=== PATIENT | female | born 1935 | race Caucasian/White ===

== ENCOUNTER → 2016-09-03 | Outpatient (CLI) | payer BC ==
[~2016-09-03] MED LIST: ACET325T96 PO; HYDR-4313 PO; HYDR-4330 PO; MULT-506 PO; PROM25TA PO; VTMD PO; VTMD1000 PO; XPNIN INH
--- NOTE | 2016-09-03 17:06 | DIAGNOSTIC IMAGING REPORT ---
CHEST 2 VIEWS ROUTINE CLINICAL HISTORY: COUGH dyspnea COMPARISON STUDY: 04/03/2014 FINDINGS: Moderate emphysematous change. Small chronic parenchymal scar left upper lung unchanged. No focal infiltrate. IMPRESSION: Moderate emphysematous change. No acute process. Electronically signed by: Jerrell Turk M.D. 09/03/2016 5:05 PM Dictated Date/Time: 09/03/2016 5:04 PM
== END | disposition home or self-care (01) ==
LOC: C.RAD 16:25
PROVIDERS: ATTEND Family Medicine
DX: R05 Cough (principal); J43.9 Emphysema, unspecified

== ENCOUNTER 2021-06-08 17:20 | Inpatient (IN) ==
[2021-06-08] MEDS ORDERED: ACETAMINOPHEN 325 MG TAB PO STA (17:55)
[2021-06-08] MEDS ORDERED: SODIUM CHLORIDE 0.9% 500 ML IV SCH (18:00)
[2021-06-08] MEDS ORDERED: SODIUM CHLORIDE 0.9% 1000ML 1,000 ML IV SCH (18:00)
--- NOTE | 2021-06-08 18:22 | XRay Report ---
XR chest 1V portable CLINICAL HISTORY: hypoxia. COMPARISON STUDY: No previous studies for comparison. TECHNIQUE: 04/03/2014 FINDINGS: Single frontal view of the chest demonstrates the cardiomediastinal silhouette to be within normal li mits. There is hyperinflation of the lungs with attenuation of the pulmonary vasculature peripherally characteristic of underlying chronic obstructive pulmonary disease. The lungs are clear of alveolar opacities. Mild interstitial fibrotic changes are present at the lung bases. There is no evidence for pleural effusion. There is no evidence for vascular congestion. There is no acute osseous pathology. IMPRESSION: No acute cardiopulmonary disease. Evidence for underlying COPD. ACT 112: Negative or not required by law. Electronically signed by: Walter Hogan M.D. 06/08/2021 6:21 PM
[2021-06-08 18:26] LABS: Basophils # (auto) 0.01 K/uL (0-0.2); Basophils % (auto) 0.1 %; Hematocrit (blood only) 47.7 % (37-47); Hemoglobin 15.7 g/dL (12.0-16.0); Immature Granulocytes # (auto) 0.01 K/uL (0.00-0.02); Immature Granulocytes % (auto) 0.1 %; Lymphocytes # (auto) 0.33 K/uL (1.2-3.4); Lymphocytes % (auto) 3.5 %; Mean Corpuscular Hemoglobin 30.2 pg (25-34); Mean Corpuscular Hgb Conc 32.9 g/dL (32-36); Mean Corpuscular Volume 91.7 fL (80-100); Mean Platelet Volume 10.2 fL (7.4-10.4); Monocytes # (auto) 1.06 K/uL (0.11-0.59); Monocytes % (auto) 11.1 %; Neutrophils # (auto) 8.15 K/uL (1.4-6.5); Neutrophils % (auto) 85.2 %; Platelet Count 200 K/uL (130-400); RDW Coefficient of Variation 15.4 % (11.5-14.5); RDW Standard Deviation 51.8 fL (36.4-46.3); White Blood Count 9.56 K/uL (4.8-10.8)
[2021-06-08 18:51] LABS: BUN Creatinine Ratio 31.2 (10-20); Calcium 9.4 mg/dl (8.5-10.1); Creatinine Clr Calc Pharmacy 22.2 ml/min; Est GFR (African American) 45.5 ml/min; Est GFR (Non-African American) 39.3 ml/min
[2021-06-08 18:58] LABS: Albumin Globulin Ratio 0.6 (0.9-2); Bilirubin,Total 0.7 mg/dl (0.2-1); Globulin 5.3 gm/dl (2.5-4.0); Thyroid Stimulating Hormone 1.46 uIu/ml (0.300-4.500); Total Protein 8.3 gm/dl (6.4-8.2); Troponin I 0.481 ng/ml (0-0.045)
--- NOTE | 2021-06-08 19:17 | Emergency Department Note ---
Impression & Plan Hypoxia, Elevated troponin, Syncope and collapse, Fever ED Provider Note INFORMANT: Patient ED PROVIDER(S): Prince Araujo MD CHIEF COMPLAINT: Syncope PLAN: Disposition: Admitted Condition: Guarded Outpatient prescription management: none Referral: None MEDICAL DECISION MAKING: Patient presented with complaints of syncope. Vital signs were concerning for infection, possibly Covid related. Covid testing was performed and was negative. Chest imaging did not reveal any significant acute disease. The patient was found to have a mild elevation of her troponin. CBC and chemistry panel were unremarkable. ECG did show some inferior T wave inversion. Lactate was performed as well as cultures. Patient was given empiric antibiotics due to the hypotension and fever. Because of the syncope and fall she was sent for CT imaging of the head and chest. The patient responded well to fluids. CT imaging of the head did not reveal any acute process. CT imaging of the chest was concerning for bilateral pulmonary emboli. I did a consult with Dr. Hogan of radiology and he agreed. I did meet with the patient and family. They were updated. Heparin drip was ordered. The patient will need further management in the hospital. Consultation was made with Dr. Jono Herbert of the [facility] service. Patient was evaluated in the ER for further management. Triage Nursing notes reviewed and agree them. Vital Signs: reviewed and remarkable for hypoxia, hypotension, and fever Differential diagnosis: COVID-19, vasovagal event, dehydration, infection, hypoglycemia, electrolyte abnormalities, cardiac sources, intracerebral event, pulmonary embolism, seizure, toxicologic, neurologic, as well as other pathologies. Diagnostics interpreted by me: ECG: Twelve-lead ECG reveals sinus tachycardia 112 bpm. Inferior T wave inversions. Bundle-branch block present. No ST elevation. Cardiac Monitoring:Cardiac monitoring ordered by me: The patient was placed on continuous cardiac monitoring and observed. It revealed a normal sinus rhythm at 100 beats per minute without ectopy or evidence of dysrhythmia. Imaging studies: Chest x-ray reveals chronic changes. No acute process noted. CT imaging of the head and chest as above. Consistent with bilateral pulmonary emboli. HPI: The patient is a 85 year old female who presents to the Emergency Room with complaints of syncope. This started this morning around 930 and occurred at home. Patient states she was weak and was unable to get herself up. She laid on the floor until about 2 PM. The patient also notes the following associated symptoms, shortness of breath for the last few days. Patient is not immunized f or COVID-19 No known sick contacts for COVID-19. The patient has taken no medication forrelieving factors. Current pain is rated as 0/10. Pt denies headache, fevers, chills, diaphoresis, visual changes, neck pain, chest pain, nausea, vomiting, abdominal pain, back pain, melena, hematochezia, urinary symptoms, numbness, focal weakness, lymphadenopathy, rash, or other complaints. ROS: See above HPI for pertinent positives & negatives. A total of 10 systems reviewed and were otherwise negative. PAST MEDICAL HISTORY:See Below , COPD PAST SURGICAL HISTORY:See Below, FAMILY HISTORY:See Below SOCIAL HISTORY:See Below, non-smoker HOME MEDICATIONS:See Below ALLERGIES:See Below VITALS:See Below PHYSICAL EXAMINATION: GENERAL: Awake, alert, mildly dyspneic-appearing, in no distress HENT: Normocephalic, atraumatic. Oropharynx unremarkable. EYES: Normal conjunctiva. Sclera non-icteric. NECK: Inspection normal. Non-tender. Supple. No nuchal rigidity. FROM. No masses. RESPIRATORY: Clear to auscultation. No wheezes. No rales. Mildly increased respiratory effort. CARDIAC: Normal rate. Normal rhythm. No murmurs. No rubs. Extremities warm and well perfused. Pulses equal. No JVD. GI: Soft, non-distended. No tenderness to palpation. No rebound or guarding. No masses. RECTAL: Deferred. MUSCULOSKELETAL: Atraumatic. Chest examination reveals no tenderness. The back is symmetrical on inspection without obvious abnormality. There is no CVA te nderness to palpation. No joint edema. LOWER EXTREMITIES: Calves are equal size bilaterally and non-tender. No edema. No discoloration. NEURO: Normal sensorium. No sensory or motor deficits noted. SKIN: No rash or jaundice noted. CRITICAL CARE: I have personally spent greater than 40 minutes of critical care time in the direct management of this patient. This includes bedside care, interpretation of diagnostic studies, and testing, discussion with consultants, patient, and family members, and other required patient management activities. These minutes are in excess of all separately billable procedures. Prince Araujo MD Past Med/Surg History Social History Smoking Status: Former smoker Feels Safe at Home: Yes Allergies Allergies Allergy/AdvReac Type Severity Reaction Status Date / Time No Known Allergies Allergy Verified 06/08/21 20:59 Home Meds Home Medications Medication Instructions Recorded Confirmed albuterol sulfate 90 mcg/actuation 2 puff INHALATION Q6H PRN 06/08/21 06/08/21 aerosol inhaler alendronate 70 mg tablet 70 mg PO WK 06/08/21 06/08/21 fluticasone furoate 100 1 inh INHALATION DAILY 06/08/21 06/08/21 mcg-vilanterol 25 mcg/dose inhalation powder (Breo Ellipta) multivitamin 1 tab PO DAILY 06/08/21 06/08/21 Results & Data (ED) Vital Signs Vital Signs - 24 hr 06/08/21 17:25 06/08/21 17:31 06/08/21 17:32 Temperature 37.9 C H Temperature Source Temporal Artery Scan Pulse Rate 117 H 104 H Pulse Rhythm Regular Respiratory Rate 20 20 Respiratory Effort / Characteristics Non-Labored Respiratory Depth Normal Blood Pressure 111/70 Blood Pressure [Right Arm] Blood Pressure Mean 83 Blood Pressure Mean [Right Arm] Blood Pressure Position [Right Arm] Pulse Oximetry 83 L 94 Oxygen Delivery Method Room Air Nasal Cannula Nasal Cannula Oxygen Flow Rate 4 Sepsis Recent Fever Within 48 Hours No Sepsis New/Unexplained Change in Mental Status No Sepsis Action Taken by Nursing No Action Required Oxygen Flow Rate - Titration 4 Pulse Oximetry Post Tiitration 90 06/08/21 17:49 06/08/21 17:50 06/08/21 18:00 Temperature Temperature Source Pulse Rate 112 H 110 H 109 H Pulse Rhythm Respiratory Rate 22 24 41 H Respiratory Effort / Characteristics Respiratory Depth Blood Pressure Blood Pressure [Right Arm] Blood Pressure Mean Blood Pressure Mean [Right Arm] Blood Pressure Position [Right Arm] Pulse Oximetry 96 96 Oxygen Delivery Method Oxygen Flow Rate Sepsis Recent Fever Within 48 Hours Sepsis New/Unexplained Change in Mental Status Sepsis Action Taken by Nursing Oxygen Flow Rate - Titration Pulse Oximetry Post Tiitration 06/08/21 18:10 06/08/21 18:20 06/08/21 18:26 Temperature Temperature Source Pulse Rate 106 H 107 H Pulse Rhythm Respiratory Rate 20 22 20 Respiratory Effort / Characteristics Respiratory Depth Normal Blood Pressure Blood Pressure [Right Arm] 101/60 Blood Pressure Mean Blood Pressure Mean [Right Arm] 73 Blood Pressure Position [Right Arm] Lying Pulse Oximetry 96 95 95 Oxygen Delivery Method Nasal Cannula Nasal Cannula Nasal Cannula Oxygen Flow Rate 4 4 4 Sepsis Recent Fever Within 48 Hours Sepsis New/Unexplained Change in Mental Status Sepsis Action Taken by Nursing Oxygen Flow Rate - Titration Pulse Oximetry Post Tiitration 06/08/21 18:30 06/08/21 18:40 Temperature Temperature Source Pulse Rate 100 H 101 H Pulse Rhythm Respiratory Rate 22 15 Respiratory Effort / Characteristics Respiratory Depth Blood Pressure 98/61 L Blood Pressure [Right Arm] Blood Pressure Mean 73 Blood Pressure Mean [Right Arm] Blood Pressure Position [Right Arm] Pulse Oximetry 96 96 Oxygen Delivery Method Nasal Cannula Nasal Cannula Oxygen Flow Rate 4 4 Sepsis Recent Fever Within 48 Hours Sepsis New/Unexplained Change in Mental Status Sepsis Action Taken by Nursing Oxygen Flow Rate - Titration Pulse Oximetry Post Tiitration Laboratory Data Result diagrams: 06/08/21 18:14 06/08/21 19:14 Lab Results 06/08/21 06/08/21 06/08/21 Range/Units 18:14 18:14 18:14 WBC 9.56 (4.8-10.8) K/uL RBC 5.20 (4.2-5.4) M/uL Hgb 15.7 (12.0-16.0) g/dL Hct 47.7 H (37-47) % MCV 91.7 (80-100) fL MCH 30.2 (25-34) pg MCHC 32.9 (32-36) g/dL RDW Std Deviation 51.8 H (36.4-46.3) fL RDW Coeff of Maxim 15.4 H (11.5-14.5) % Plt Count 200 (130-400) K/uL MPV 10.2 (7.4-10.4) fL Immature Gran % (Auto) 0.1 % Neut % (Auto) 85.2 % Lymph % (Auto) 3.5 % [place] % (Auto) 11.1 % Eos % (Auto) 0.0 % Baso % (Auto) 0.1 % Neut # (Auto) 8.15 H (1.4-6.5) K/uL Lymph # (Auto) 0.33 L (1.2-3.4) K/uL [place] # (Auto) 1.06 H (0.11-0.59) K/uL Eos # (Auto) 0.00 (0-0.5) K/uL Baso # (Auto) 0.01 (0-0.2) K/uL Immature Gran # (Auto) 0.01 (0.00-0.02) K/uL PT (9.0-12.0) Seconds INR (0.9-1.1) APTT (21.0-31.0) Seconds PTT Ratio Sodium 138 (136-145) mmol/L Potassium (3.5-5.1) mmol/L Chloride 103 (98-107) mmol/L Carbon Dioxide 25 (21-32) mmol/L Anion Gap 9.0 (3-11) BUN 39 H (7-18) mg/dl Creatinine 1.24 H (0.6-1.2) mg/dl Est Cr Clr Drug Dosing 22.2 ml/min Est GFR ( Amer) 45.5 ml/min Est GFR (Non-Af Amer) 39.3 ml/min BUN/Creatinine Ratio 31.2 H (10-20) Glucose 173 H (70-99) mg/dl Lactate (0.4-2.0) mmol/L Calcium 9.4 (8.5-10.1) mg/dl Magnesium (1.8-2.4) mg/dl Total Bilirubin 0.7 (0.2-1) mg/dl AST (15-37) U/L ALT 66 (12-78) U/L Alkaline Phosphatase 218 H (45-117) U/L Troponin I 0.481 H* (0-0.045) ng/ml Total Protein 8.3 H (6.4-8.2) gm/dl Albumin 3.0 L (3.4-5.0) gm/dl Globulin 5.3 H (2.5-4.0) gm/dl Albumin/Globulin Ratio 0.6 L (0.9-2) TSH 1.460 (0.300-4.500) uIu/ml Specimen Hemolysis Cancelled SARS-CoV-2 (PCR) NEGATIVE (Negative) 06/08/21 06/08/21 06/08/21 Range/Units 18:42 19:14 21:01 WBC (4.8-10.8) K/uL RBC (4.2-5.4) M/uL Hgb (12.0-16.0) g/dL Hct (37-47) % MCV (80-100) fL MCH (25-34) pg MCHC (32-36) g/dL RDW Std Deviation (36.4-46.3) fL RDW Coeff of Maxim (11.5-14.5) % Plt Count (130-400) K/uL MPV (7.4-10.4) fL Immature Gran % (Auto) % Neut % (Auto) % Lymph % (Auto) % [place] % (Auto) % Eos % (Auto) % Baso % (Auto) % Neut # (Auto) (1.4-6.5) K/uL Lymph # (Auto) (1.2-3.4) K/uL [place] # (Auto) (0.11-0.59) K/uL Eos # (Auto) (0-0.5) K/uL Baso # (Auto) (0-0.2) K/uL Immature Gran # (Auto) (0.00-0.02) K/uL PT (9.0-12.0) Seconds INR (0.9-1.1) APTT (21.0-31.0) Seconds PTT Ratio Sodium (136-145) mmol/L Potassium 4.4 (3.5-5.1) mmol/L Chloride (98-107) mmol/L Carbon Dioxide (21-32) mmol/L Anion Gap (3-11) BUN (7-18) mg/dl Creatinine (0.6-1.2) mg/dl Est Cr Clr Drug Dosing ml/min Est GFR ( Amer) ml/min Est GFR (Non-Af Amer) ml/min BUN/Creatinine Ratio (10-20) Glucose (70-99) mg/dl Lactate 2.7 H* 1.8 (0.4-2.0) mmol/L Calcium (8.5-10.1) mg/dl Magnesium 2.4 (1.8-2.4) mg/dl Total Bilirubin (0.2-1) mg/dl AST 46 H (15-37) U/L ALT (12-78) U/L Alkaline Phosphatase (45-117) U/L Troponin I (0-0.045) ng/ml Total Protein (6.4-8.2) gm/dl Albumin (3.4-5.0) gm/dl Globulin (2.5-4.0) gm/dl Albumin/Globulin Ratio (0.9-2) TSH (0.300-4.500) uIu/ml Specimen Hemolysis SARS-CoV-2 (PCR) (Negative) 06/08/21 Range/Units 21:01 WBC (4.8-10.8) K/uL RBC (4.2-5.4) M/uL Hgb (12.0-16.0) g/dL Hct (37-47) % MCV (80-100) fL MCH (25-34) pg MCHC (32-36) g/dL RDW Std Deviation (36.4-46.3) fL RDW Coeff of Maxim (11.5-14.5) % Plt Count (130-400) K/uL MPV (7.4-10.4) fL Immature Gran % (Auto) % Neut % (Auto) % Lymph % (Auto) % [place] % (Auto) % Eos % (Auto) % Baso % (Auto) % Neut # (Auto) (1.4-6.5) K/uL Lymph # (Auto) (1.2-3.4) K/uL [place] # (Auto) (0.11-0.59) K/uL Eos # (Auto) (0-0.5) K/uL Baso # (Auto) (0-0.2) K/uL Immature Gran # (Auto) (0.00-0.02) K/uL PT 11.9 (9.0-12.0) Seconds INR 1.2 H (0.9-1.1) APTT 24.5 (21.0-31.0) Seconds PTT Ratio 0.9 Sodium (136-145) mmol/L Potassium (3.5-5.1) mmol/L Chloride (98-107) mmol/L Carbon Dioxide (21-32) mmol/L Anion Gap (3-11) BUN (7-18) mg/dl Creatinine (0.6-1.2) mg/dl Est Cr Clr Drug Dosing ml/min Est GFR ( Amer) ml/min Est GFR (Non-Af Amer) ml/min BUN/Creatinine Ratio (10-20) Glucose (70-99) mg/dl Lactate (0.4-2.0) mmol/L Calcium (8.5-10.1) mg/dl Magnesium (1.8-2.4) mg/dl Total Bilirubin (0.2-1) mg/dl AST (15-37) U/L ALT (12-78) U/L Alkaline Phosphatase (45-117) U/L Troponin I (0-0.045) ng/ml Total Protein (6.4-8.2) gm/dl Albumin (3.4-5.0) gm/dl Globulin (2.5-4.0) gm/dl Albumin/Globulin Ratio (0.9-2) TSH (0.300-4.500) uIu/ml Specimen Hemolysis SARS-CoV-2 (PCR) (Negative) Administered Medications Sodium Chloride (Nss 1000ml) 1,000 mls @ 125 mls/hr IV .Q8H DEEJAY Stop: 06/09/21 01:59 Last Admin: 06/08/21 18:10 Dose: 125 mls/hr Documented by: [id number] Discontinued Medications Acetaminophen (Acetaminophen 325 Mg Tab) 650 mg PO NOW STA Stop: 06/08/21 17:56 Last Admin: 06/08/21 18:07 Dose: 650 mg Documented by: [id number] Sodium Chloride (Nss) 500 mls @ 999 mls/hr IV .Q31M DEEJAY Stop: 06/08/21 18:30 Last Infusion: 06/08/21 20:11 Dose: 999 mls/hr Documented by: [id number] Admin: 06/08/21 19:39 Dose: 999 mls/hr Documented by: [id number] Sodium Chloride (Nss 1000ml) 500 mls @ 999 mls/hr IV .Q31M ONE Stop: 06/08/21 19:55 Last Infusion: 06/08/21 20:11 Dose: 999 mls/hr Documented by: [id number] Admin: 06/08/21 19:40 Dose: 999 mls/hr Documented by: [id number] Ioversol (Optiray 320 125ml) 110 ml IV ONCE ONE Stop: 06/08/21 20:37 Last Admin: 06/08/21 20:36 Dose: 110 ml Documented by: [id number] Imaging Data Radiologist's Impression: Chest X-Ray 06/08/21 17:54 XR chest 1V portable CLINICAL HISTORY: hypoxia. COMPARISON STUDY: No previous studies for comparison. TECHNIQUE: 04/03/2014 FINDINGS: Single frontal view of the chest demonstrates the cardiomediastinal silhouette to be within normal limits. There is hyperinflation of the lungs with attenuation of the pulmonary vasculature peripherally characteristic of underlying chronic obstructive pulmonary disease. The lungs are clear of alveol ar opacities. Mild interstitial fibrotic changes are present at the lung bases. There is no evidence for pleural effusion. There is no evidence for vascular congestion. There is no acute osseous pathology. IMPRESSION: No acute cardiopulmonary disease. Evidence for underlying COPD. ACT 112: Negative or not required by law. Electronically signed by: Walter Hogan M.D. 06/08/2021 6:21 PM Chest CTA 06/08/21 19:26 CT angio chest PE protocol CLINICAL HISTORY: syncope, hypoxia . Shortness of breath. Evaluate for pulmonary embolus. COMPARISON STUDY: Portable chest from 06/08/2021 TECHNIQUE: CT Angio of the chest was performed.followed by image post processing with coronal, and sagittal MIP reformats. Contrast Volume: Optiray 320, 110 ml FINDINGS: Vasculature: There is intraluminal thrombus present within both the right upper and left upper pulmonary arteries with no evidence for saddle embolus. Thrombus is also seen in distal branches of right lower lobe pulmonary arteries. Small thrombi are also seen in the distal left lower lobe pulmonary arteries. Airway: The airway is clear. No endobronchial lesion is identified. Lungs: There is mild centrilobular emphysematous changes particularly involving the upper lobes bilaterally. There is right middle lobe atelectasis. Minimal atelectasis versus scarring is also seen at the lung bases. There is an approximately 7 mm pulmonary nodule seen in the left lung base posterolaterally on left. No other pulmonary nodules or confluent alveolar opacities are seen. Pleura: There is no evidence for pleural effusion. There is no evidence for pneumothorax. Mediastinum: There is no evidence for pathologic adenopathy. There is evidence for mild right heart strain with the ventricular septum in the midline and slightly bulging to the left. The heart size is within normal limits. The thoracic aorta is within normal limits. There is no evidence for pericardial effusion. Upper abdomen:The adrenal glands are normal bilaterally. Osseous structures: There is no acute osseous pathology. Impression: 1. Positive CTA for emboli within predominantly both upper lobes but also within the lower lobes in a more peripheral branches. 2. Evidence for mild heart strain. 3. Right middle lobe atelectasis and minimal bibasilar atelectasis versus scarring. 4. Mild centrilobular emphysema. 5. 7 mm left lower lobe pulmonary nodule. Preliminary results were discussed with the emergency Department. ACT 112: Negative or not required by law. Electronically signed by: Walter Hogan M.D. 06/08/2021 9:[address] 06/08/21 19:46 CT head/brain wo con CLINICAL HISTORY: syncope COMPARISON STUDY: No previous studies for comparison. CT DOSE: 770.44 mGy.cm TECHNIQUE: Standard CT of the Brain was performed without IV contrast. A dose lowering technique was utilized adhering to the principles of ALARA. FINDINGS: Extraaxial space: There is no evidence for subdural hematoma. There are no extra-axial fluid collections. Ventricles and cisterns: The ventricles are normal in size and configuration. There is no evidence for midline shift or mass effect. Parenchyma: There is no subarachnoid or intraparenchymal hemorrhage. There is no evidence for an acute infarct or cerebral edema. There is mild cerebral cortical atrophy and decreased attenuation in the periventricular white matter representing remote small vessel disease. Findings are greater in the left kateryna trum semiovale. There are no gross mass lesions. Osseous structures: There is no evidence for an acute fracture. The visualized paranasal sinuses are clear. The mastoid air cells are clear bilaterally. Soft tissues: There is no evidence for focal soft tissue swelling. IMPRESSION: No acute intracerebral pathology. Remote small vessel disease is present. ACT 112: Negative or not required by law. Electronically signed by: Walter Hogan M.D. 06/08/2021 9:02 PM Discharge Plan Visit Data Chief Complaint: Syncope Stated Complaint: SYNCOPE, REFERRED BY ED Provider: Prince Araujo Discharge Problem: Hypoxia, Elevated troponin, Syncope and collapse, Fever Forms Stand Alone Forms: [facility] Prescriptions Prescriptions: No Action albuterol sulfate 90 mcg/actuation HFA aerosol inhaler 2 puff INHALATION Q6H PRN (Reason: Shortness Of Breath Or Wheezing) RF: 0 alendronate 70 mg tablet 70 mg PO WK RF: 0 Breo Ellipta 100-25 mcg/dose blister with device 1 inh INHALATION DAILY RF: 0 multivitamin [Multiple Vitamin] Tablet 1 tab PO DAILY RF: 0 Referrals Referrals: Imelda Yates DO [Primary Care Provider] -
[2021-06-08] MEDS ORDERED: SODIUM CHLORIDE 0.9% 1000ML 500 ML IV ONE (19:25)
[2021-06-08] MEDS ORDERED: CEFEPIME 1,000 MG in SYRINGE 0 ML IV STA (19:25)
[2021-06-08 19:47] LABS: Potassium 4.4 mmol/L (3.5-5.1)
[2021-06-08 19:52] LABS: Magnesium 2.4 mg/dl (1.8-2.4)
[2021-06-08] MEDS ORDERED: OPTIRAY 320 125ml IV ONE (20:36)
[2021-06-08] MEDS ORDERED: Heparin IV Adult Wt-Based Low-Dose WITH Bolus Protocol STA (20:57)
--- NOTE | 2021-06-08 21:04 | CT Scan Report ---
CT head/brain wo con CLINICAL HISTORY: syncope COMPARISON STUDY: No previous studies for comparison. CT DOSE: 770.44 mGy.cm TECHNIQUE: Standard CT of the Brain was performed without IV contrast. A dose lowering technique was utilized adhering to the principles of ALARA. FINDINGS: Extraaxial space: There is no evidence for subdural hematoma. There are no extra-axial fluid collecti ons. Ventricles and cisterns: The ventricles are normal in size and configuration. There is no evidence f or midline shift or mass effect. Parenchyma: There is no subarachnoid or intraparenchymal hemorrhage. There is no evidence for an acu te infarct or cerebral edema. There is mild cerebral cortical atrophy and decreased attenuation in th e periventricular white matter representing remote small vessel disease. Findings are greater in the left centrum semiovale. There are no gross mass lesions. Osseous structures: There is no evidence for an acute fracture. The visualized paranasal sinuses are clear. The mastoid air cells are clear bilaterally. Soft tissues: There is no evidence for focal soft tissue swelling. IMPRESSION: No acute intracerebral pathology. Remote small vessel disease is present. ACT 112: Negative or not required by law. Electronically signed by: Walter Hogan M.D. 06/08/2021 9:02 PM
--- NOTE | 2021-06-08 21:10 | CT Scan Report ---
CT angio chest PE protocol CLINICAL HISTORY: syncope, hypoxia . Shortness of breath. Evaluate for pulmonary embolus. COMPARISON STUDY: Portable chest from 06/08/2021 TECHNIQUE: CT Angio of the chest was performed.followed by image post processing with coronal, and s agittal MIP reformats. Contrast Volume: Optiray 320, 110 ml FINDINGS: Vasculature: There is intraluminal thrombus present within both the right upper and left upper pulmon [place] arteries with no evidence for saddle embolus. Thrombus is also seen in distal branches of right l ower lobe pulmonary arteries. Small thrombi are also seen in the distal left lower lobe pulmonary art eries. Airway: The airway is clear. No endobronchial lesion is identified. Lungs: There is mild centrilobular emphysematous changes particularly involving the upper lobes bilat erally. There is right middle lobe atelectasis. Minimal atelectasis versus scarring is also seen at t he lung bases. There is an approximately 7 mm pulmonary nodule seen in the left lung base posterolate rally on left. No other pulmonary nodules or confluent alveolar opacities are seen. Pleura: There is no evidence for pleural effusion. There is no evidence for pneumothorax. Mediastinum: There is no evidence for pathologic adenopathy. There is evidence for mild right heart s train with the ventricular septum in the midline and slightly bulging to the left. The heart size is within normal limits. The thoracic aorta is within normal limits. There is no evidence for pericardia l effusion. Upper abdomen:The adrenal glands are normal bilaterally. Osseous structures: There is no acute osseous pathology. Impression: 1. Positive CTA for emboli within predominantly both upper lobes but also within the lower lobes in a more peripheral branches. 2. Evidence for mild heart strain. 3. Right middle lobe atelectasis and minimal bibasilar atelectasis versus scarring. 4. Mild centrilobular emphysema. 5. 7 mm left lower lobe pulmonary nodule. Preliminary results were discussed with the emergency Department. ACT 112: Negative or not required by law. Electronically signed by: Walter Hogan M.D. 06/08/2021 9:09 PM
[2021-06-08] MEDS ORDERED: HEPARIN SOD (PORCINE) 1000 UNIT/ML IV ONE (21:13)
[2021-06-08] MEDS ORDERED: HEPARIN SODIUM/DEXTROSE 25,000 UNITS/500 ML BAG IV SCH (21:15)
--- NOTE | 2021-06-08 21:22 | History & Physical Report ---
Date of Service June 08, 2021 Assessment & Plan (1) Pulmonary embolism: Plan: 85 yo generally healthy F brought to ER for syncope and collapse, found to have BL Pulmonary Emboli with right heart strain and elevated troponin. PE - as CTA reading above - no hx cancer or blood clots - new oxygen requirement of 4L NC - venous dopplers pending - unlikely to be genetic given no hx of blood clots - heparin drip with bolus Elevated trop - tte - right heart strain per CTA above - mildly hypotensive on arrival, improved with fluids - secondary to ischemic injury with collapse vs. PE heart strain - trop 0.41, trend - no EKG changes - cardiology consult JJ - Cr 1.24, no hx renal disease - gentle fluids - lactate 2.7 down to 1.8 with fluids COPD - continue home inhalers DVT ppx: on heparin drip FEN/GI: heart healthy Bowel regimen: prn miralax Code Status: DNR/DNI Dispo: med/tele Patient's Daughter Rosey Castillo would like a phone call update [phone]. She is medical POA. Okay with getting text and calling back later if in a meeting. Patient has a living will. (2) Elevated troponin: (3) Syncope and collapse: (4) Hypoxia: (5) COPD (chronic obstructive pulmonary disease): (6) Osteoporosis: History of Present Illness Primary Care Provider: Imelda Yates, 85 yo F with pmh osteoporosis and COPD brought to the emergency department by daughter due to unwitnessed fall and syncope at home. Daughter was trying to get in touch with her mother who was not picking up the phone despite multiple phone calls. Brother was able to come by the house and found her on the ground. Katrina states she remembers going to her kitchen and then feeling lightheaded and dizzy, and passing out. She states she was awake and heard the phone ringing but wasn't able to reach the phone. She hasn't had any sick contacts, lives alone and is fairly independent. She denies any previous similar syncopal events. She denies any recent fevers, chills, nausea, vomiting, diarrhea, abdominal pain, chest pain, SOB, dysuria. She denies a history of cancer or previous blood clots and was up to date with her screening colonoscopy in 2018. Allergies Allergy/AdvReac Type Severity Reaction Status Date / Time No Known Allergies Allergy Verified 06/08/21 20:59 Home Medications Medication Instructions Recorded Confirmed Type albuterol sulfate 90 mcg/actuation 2 puff INHALATION Q6H PRN 06/08/21 06/08/21 History aerosol inhaler alendronate 70 mg tablet 70 mg PO WK 06/08/21 06/08/21 History fluticasone furoate 100 1 inh INHALATION DAILY 06/08/21 06/08/21 History mcg-vilanterol 25 mcg/dose inhalation powder (Breo Ellipta) multivitamin 1 tab PO DAILY 06/08/21 06/08/21 History Past Med/Surg History Medical History (Updated 06/08/21 @ 22:32 by Neeta Parker MD) COPD (chronic obstructive pulmonary disease) Osteoporosis Social History Smoking Status: Never smoker Hx Alcohol Use: No Hx Substance Use: No Preferred Language: Chilean Communication Ability: Effective Weatherization Director Required: No Beliefs That Will Affect Care: None Current Living Situation: Alone Feels Safe at Home: Yes Safety Concerns: Feels Safe At This Time Assistive Devices: Cane, Glasses and Walker Review of Systems Review of Systems: All systems reviewed & are unremarkable except as noted in Subjective Physical Exam Physical Exam: Constitutional: thin, elderly female in no apparent distress, laying comfortably in bed. Eyes: EOMI, pupils equal and reactive bilaterally, no scleral icterus Cardiac: RRR, no murmurs, gallops or rubs. Normal S1, S2 Pulm: CTA BL, no wheezes, rhonchi, crackles or rubs, moving air well throughout both lungs Abd: soft, nontender, nondistended, normal bowel sounds, no rebound or guarding Extremities: 2+ peripheral pulses, no edema Neuro: no focal deficits, moving all 4 limbs, A&Ox3 Results & Data Results & Data ([facility]) Vital Signs (Past 12 Hours) Vital Signs Temp Pulse Resp BP BP Pulse Ox 06/08/21 18:40 101 H 15 98/61 L 96 06/08/21 18:30 100 H 22 96 06/08/21 18:26 20 101/60 95 06/08/21 18:20 107 H 22 95 06/08/21 18:10 106 H 20 96 06/08/21 18:00 109 H 41 H 06/08/21 17:50 110 H 24 96 06/08/21 17:49 112 H 22 96 06/08/21 17:31 104 H 20 94 06/08/21 17:25 37.9 C H 117 H 20 111/70 83 L Laboratory Results Laboratory Results WBC 9.56 K/uL (4.8-10.8) 06/08/21 18:14 RBC 5.20 M/uL (4.2-5.4) 06/08/21 18:14 Hgb 15.7 g/dL (12.0-16.0) 06/08/21 18:14 Hct 47.7 % (37-47) H 06/08/21 18:14 MCV 91.7 fL (80-100) 06/08/21 18:14 MCH 30.2 pg (25-34) 06/08/21 18:14 MCHC 32.9 g/dL (32-36) 06/08/21 18:14 RDW Std Deviation 51.8 fL (36.4-46.3) H 06/08/21 18:14 RDW Coeff of Maxim 15.4 % (11.5-14.5) H 06/08/21 18:14 Plt Count 200 K/uL (130-400) 06/08/21 18:14 MPV 10.2 fL (7.4-10.4) 06/08/21 18:14 Immature Gran % (Auto) 0.1 % 06/08/21 18:14 Neut % (Auto) 85.2 % 06/08/21 18:14 Lymph % (Auto) 3.5 % 06/08/21 18:14 Baca % (Auto) 11.1 % 06/08/21 18:14 Eos % (Auto) 0.0 % 06/08/21 18:14 Baso % (Auto) 0.1 % 06/08/21 18:14 Neut # (Auto) 8.15 K/uL (1.4-6.5) H 06/08/21 18:14 Lymph # (Auto) 0.33 K/uL (1.2-3.4) L 06/08/21 18:14 Baca # (Auto) 1.06 K/uL (0.11-0.59) H 06/08/21 18:14 Eos # (Auto) 0.00 K/uL (0-0.5) 06/08/21 18:14 Baso # (Auto) 0.01 K/uL (0-0.2) 06/08/21 18:14 Immature Gran # (Auto) 0.01 K/uL (0.00-0.02) 06/08/21 18:14 PT 11.9 Seconds (9.0-12.0) 06/08/21 21:01 INR 1.2 (0.9-1.1) H 06/08/21 21:01 APTT 24.5 Seconds (21.0-31.0) 06/08/21 21:01 PTT Ratio 0.9 06/08/21 21:01 Sodium 138 mmol/L (136-145) 06/08/21 18:14 Potassium 4.4 mmol/L (3.5-5.1) 06/08/21 19:14 Chloride 103 mmol/L (98-107) 06/08/21 18:14 Carbon Dioxide 25 mmol/L (21-32) 06/08/21 18:14 Anion Gap 9.0 (3-11) 06/08/21 18:14 BUN 39 mg/dl (7-18) H 06/08/21 18:14 Creatinine 1.24 mg/dl (0.6-1.2) H 06/08/21 18:14 Est Cr Clr Drug Dosing 22.2 ml/min 06/08/21 18:14 Est GFR ( Amer) 45.5 ml/min 06/08/21 18:14 Est GFR (Non-Af Amer) 39.3 ml/min 06/08/21 18:14 BUN/Creatinine Ratio 31.2 (10-20) H 06/08/21 18:14 Glucose 173 mg/dl (70-99) H 06/08/21 18:14 Lactate 1.8 mmol/L (0.4-2.0) 06/08/21 21:01 Calcium 9.4 mg/dl (8.5-10.1) 06/08/21 18:14 Magnesium 2.4 mg/dl (1.8-2.4) 06/08/21 19:14 Total Bilirubin 0.7 mg/dl (0.2-1) 06/08/21 18:14 AST 46 U/L (15-37) H 06/08/21 19:14 ALT 66 U/L (12-78) 06/08/21 18:14 Alkaline Phosphatase 218 U/L (45-117) H 06/08/21 18:14 Troponin I 0.481 ng/ml (0-0.045) H* 06/08/21 18:14 Total Protein 8.3 gm/dl (6.4-8.2) H 06/08/21 18:14 Albumin 3.0 gm/dl (3.4-5.0) L 06/08/21 18:14 Globulin 5.3 gm/dl (2.5-4.0) H 06/08/21 18:14 Albumin/Globulin Ratio 0.6 (0.9-2) L 06/08/21 18:14 TSH 1.460 uIu/ml (0.300-4.500) 06/08/21 18:14 Specimen Hemolysis Cancelled 06/08/21 18:14 SARS-CoV-2 (PCR) NEGATIVE (Negative) 06/08/21 18:14 Impressions Chest X-Ray 06/08/21 17:54 XR chest 1V portable CLINICAL HISTORY: hypoxia. COMPARISON STUDY: No previous studies for comparison. TECHNIQUE: 04/03/2014 FINDINGS: Single frontal view of the chest demonstrates the cardiomediastinal silhouette to be within normal limits. There is hyperinflation of the lungs with attenuation of the pulmonary vasculature peripherally characteristic of underlying chronic obstructive pulmonary disease. The lungs are clear of alveolar opacities. Mild interstitial fibrotic changes are present at the lung bases. There is no evidence for pleural effusion. There is no evidence for vascular congestion. There is no acute osseous pathology. IMPRESSION: No acute cardiopulmonary disease. Evidence for underlying COPD. ACT 112: Negative or not required by law. Electronically signed by: Walter Hogan M.D. 06/08/2021 6:21 PM Chest CTA 06/08/21 19:26 CT angio chest PE protocol CLINICAL HISTORY: syncope, hypoxia . Shortness of breath. Evaluate for pulmonary embolus. COMPARISON STUDY: Portable chest from 06/08/2021 TECHNIQUE: CT Angio of the chest was performed.followed by image post processing with coronal, and sagittal MIP reformats. Contrast Volume: Optiray 320, 110 ml FINDINGS: Vasculature: There is intraluminal thrombus present within both the right upper and left upper pulmonary arteries with no evidence for saddle embolus. Thrombus is also seen in distal branches of right lower lobe pulmonary arteries. Small thrombi are also seen in the distal left lower lobe pulmonary arteries. Airway: The airway is clear. No endobronchial lesion is identified. Lungs: There is mild centrilobular emphysematous changes particularly involving the upper lobes bilaterally. There is right middle lobe atelectasis. Minimal atelectasis versus scarring is also seen at the lung bases. There is an approximately 7 mm pulmonary nodule seen in the left lung base posterolaterally on left. No other pulmonary nodules or confluent alveolar opacities are seen. Pleura: There is no evidence for pleural effusion. There is no evidence for pneumothorax. Mediastinum: There is no evidence for pathologic adenopathy. There is evidence for mild right heart strain with the ventricular septum in the midline and slightly bulging to the left. The heart size is within normal limits. The thoracic aorta is within normal limits. There is no evidence for pericardial effusion. Upper abdomen:The adrenal glands are normal bilaterally. Osseous structures: There is no acute osseous pathology. Impression: 1. Positive CTA for emboli within predominantly both upper lobes but also within the lower lobes in a more peripheral branches. 2. Evidence for mild heart strain. 3. Right middle lobe atelectasis and minimal bibasilar atelectasis versus scarring. 4. Mild centrilobular emphysema. 5. 7 mm left lower lobe pulmonary nodule. Preliminary results were discussed with the emergency Department. ACT 112: Negative or not required by law. Electronically signed by: Walter Hogan M.D. 06/08/2021 9:[address] 06/08/21 19:46 CT head/brain wo con CLINICAL HISTORY: syncope COMPARISON STUDY: No previous studies for comparison. CT DOSE: 770.44 mGy.cm TECHNIQUE: Standard CT of the Brain was performed without IV contrast. A dose lowering technique was utilized adhering to the principles of ALARA. FINDINGS: Extraaxial space: There is no evidence for subdural hematoma. There are no extra-axial fluid collections. Ventricles and cisterns: The ventricles are normal in size and configuration. There is no evidence for midline shift or mass effect. Parenchyma: There is no subarachnoid or intraparenchymal hemorrhage. There is no evidence for an acute infarct or cerebral edema. There is mild cerebral cortical atrophy and decreased attenuation in the periventricular white matter representing remote small vessel disease. Findings are greater in the left centrum semiovale. There are no gross mass lesions. Osseous structures: There is no evidence for an acute fracture. The visualized paranasal sinuses are clear. The mastoid air cells are clear bilaterally. Soft tissues: There is no evidence for focal soft tissue swelling. IMPRESSION: No acute intracerebral pathology. Remote small vessel disease is present. ACT 112: Negative or not required by law. Electronically signed by: Walter Hogan M.D. 06/08/2021 9:02 PM Supervising Physician Co-Signing Physician Notes Attending addendum: I have physically seen this patient, have supervised the medical residents activities, and agree with the H&P unless as otherwise noted. Assessment and Plan: Bilateral pulmonary emboli- Admit to monitored bed Heparin drip with bolus Order venous Dopplers bilateral lower extremity to assess for DVT Elevated troponin/right heart strain noted on CT- Troponin 0.41 upon admission The patient will be admitted to telemetry for serial cardiac enzymes, serial EKG's, cardiac rhythm monitoring and a 2-D echocardiogram with Dopplers. Heparin drip as noted above Continue with IV fluids to maintain preload to address mild hypotension while in ED Remaining orders and notations as noted Resident Activity Tracking Resident Involvement: Resident Care Provided Care Provided: Adult Hospital Medicine
[2021-06-08 21:24] LABS: INR 1.2 (0.9-1.1); Partial Thromboplastin Ratio 0.9; Partial Thromboplastin Time 24.5 Seconds (21.0-31.0); Prothrombin Time 11.9 Seconds (9.0-12.0)
[2021-06-08] MEDS ORDERED: ONDANSETRON INJ 2 MG/ML 2 ML VIAL IV PRN (23:06)
[2021-06-08] MEDS ORDERED: ALBUTEROL HFA 8 GM INHALER INH PRN (23:06)
[2021-06-08] MEDS ORDERED: NITROGLYCERIN SL 0.4 MG/TAB TAB SL PRN (23:06)
[2021-06-08] MEDS ORDERED: ACETAMINOPHEN 325 MG TAB PO PRN (23:06)
[2021-06-09 02:04] LABS: Basophils # (auto) 0.01 K/uL (0-0.2); Basophils % (auto) 0.1 %; Eosinophils # (auto) 0.01 K/uL (0-0.5); Eosinophils % (auto) 0.1 %; Hematocrit (blood only) 38.6 % (37-47); Hemoglobin 12.4 g/dL (12.0-16.0); Immature Granulocytes # (auto) 0.01 K/uL (0.00-0.02); Immature Granulocytes % (auto) 0.1 %; Lymphocytes # (auto) 0.88 K/uL (1.2-3.4); Mean Corpuscular Hemoglobin 29.5 pg (25-34); Mean Corpuscular Hgb Conc 32.1 g/dL (32-36); Mean Corpuscular Volume 91.9 fL (80-100); Mean Platelet Volume 9.6 fL (7.4-10.4); Monocytes # (auto) 0.86 K/uL (0.11-0.59); Monocytes % (auto) 11.8 %; Neutrophils # (auto) 5.54 K/uL (1.4-6.5); Neutrophils % (auto) 75.9 %; Platelet Count 161 K/uL (130-400); RDW Coefficient of Variation 15.4 % (11.5-14.5); White Blood Count 7.31 K/uL (4.8-10.8)
[2021-06-09 02:12] LABS: BUN Creatinine Ratio 42.2 (10-20); Calcium 8.3 mg/dl (8.5-10.1); Creatinine Clr Calc Pharmacy 33.6 ml/min; Est GFR (African American) 75.1 ml/min; Est GFR (Non-African American) 64.8 ml/min; Potassium 4.1 mmol/L (3.5-5.1); Troponin I 0.36 ng/ml (0-0.045)
[2021-06-09 05:43] LABS: Partial Thromboplastin Ratio 2.2
[2021-06-09 05:53] LABS: Partial Thromboplastin Time 59.1 Seconds (21.0-31.0)
--- NOTE | 2021-06-09 05:55 | Hospitalist Progress Note ---
Date of Service June 09, 2021 Assessment & Plan (1) Pulmonary embolism: Plan: 85 yo generally healthy F brought to ER for syncope x, found to have BL Pulmonary Emboli with right heart strain and elevated troponin. Stable, improving on anticoagulation PE - as per CTA reading: bilat, no saddle. some mild R sided heart strain - no hx cancer or blood clots - new oxygen requirement of 4L NC, weaned down to 2L - unlikely to be genetic given no hx of blood clots - heparin drip with bolus, since transitioned to PO Eliquis) - source likely from acute DVT in RLE - sPESI 1 point w/ today's vitals. 1 point for age. high risk 8.9% - echo ef 60-65. No rwma. Moderated dilated R ventricle w/ mildly reduced systolic function. Moderate R atrial dilation. Moderate to severe TR. Moderate pulm htn. Estimated RSVP 55 hg. - consider repeat in outpatient in 6 months; unclear if some of the finds from causes other than the acute PE - Considered overall clinical presentation and stable status; no tPA Elevated trop - right heart strain per CTA above - mildly hypotensive on arrival, improved with fluids - secondary to ischemic injury with collapse vs. PE heart strain - trop 0.41, trend - ecg reviewed, T wave inversions, echo ordered as above JJ, resolved after hydration - Cr 1.24at admission, no hx renal disease - gentle fluids - lactate 2.7 down to 1.8 with fluids COPD - continue home inhalers DVT ppx: on Eliquis FEN/GI: heart healthy Bowel regimen: prn miralax Code Status: DNR/DNI Dispo: med/tele. Ordered PT/OT evals. Patient's Daughter Rosey Castillo would like a phone call update [phone]. She is medical POA. Okay with getting text and calling back later if in a meeting. Patient has a living will. (2) Elevated troponin: (3) Syncope and collapse: (4) Hypoxia: (5) COPD (chronic obstructive pulmonary disease): (6) Osteoporosis: Admission and Anticipated Discharge Date Admission Date: June 08, 2021 Supervising Physician Co-Signing Physician Notes I personally examined the patient and verified all diehl points of history and exam, discussed case, and agree with decision making with Dr Henson. Feeling pretty good overall. Breathing better. No significant chest pain or shortness of breath. Echo pending at the time I see her. Answered all questions the best my ability and to her satisfaction, she expressed a very good understanding of the situation. Vitals noted, in general she is awake and alert pleasant no distress. HEENT normocephalic atraumatic mucous membranes moist. Breathing unlabored no accessory muscle use good effort. Skin shows no rashes no pallor or icterus. Neuro without focal deficits. PE due to acute right femoral DVTHeparin transition to apixaban as we have cross checked coverage and it will be reasonable. Home once she is weaned off of oxygen. Right heart strainnot surprising given PEs, COPD, age. That said with her diffuse EKG changes, echocardiogram checked to ensure no left wall motion abnormalities. If there are none, certainly her EKG changes were somewhat nonspecific and would be safe for outpatient follow-up. Otherwise as above. Subjective Long hx of asthma. Had some dyspnea, did not think much of it. Son had been sanding wood in basement. States had 1 syncopal episode of unknown duration while at home, prompting this admission. Lives at home alone. Currently, feels better. SOB is mild, but much improved. Denies hx of VTE. Father at age 54 w/ cerebral thinner spontaneous and not on blood thinner. Denies known history of clotting disorders. No hx of cancer. Not on estrogen. D enies prolonged trips. Daughter wanting patient to move in to live with her in [place]. Chronic intermittent ble. worse in past week, bilat Review of Systems Review of Systems: All systems reviewed & are unremarkable except as noted in HPI & below Constitutional: Denies fever, chills Eyes: Denies blurry vision, vision changes Cardiovascular: Denies chest pain, palpitations Respiratory: Denies shortness of breath Gastrointestinal: Denies abdominal pain, nausea, vomiting, constipation, diarrhea Genitourinary: Denies urinary symptoms including dysuria Musculoskeletal: Denies weakness, muscle aches/pain, joint aches/pain Neurological: Denies headache, numbness, tingling, focal weakness Physical Exam Physical Exam: General: Grossly A&O. NAD. Cooperative. HEENT: Atraumatic, normocephalic. EOMI Pulm: CTAB. -wheezes, -rales, -rhonchi. Slightly decreased air entry RUL. Prolonged respiration. Mild accessory muscle use, hx of bilat rib fx Cardiac: RRR, -mrg. 1 to 2+ BLE Abdominal: Nontender, nondistended, soft. Integ, RLE slightly warmer Results & Data Results & Data ([facility]) Vital Signs (Past 12 Hours) Vital Signs tachy to 100s at admission. mostly 4L, weaned down to 2L 92%. 91 pulse Temp Pulse Pulse Resp BP BP BP 06/09/21 04:00 36.4 C L 87 18 111/68 06/08/21 23:15 36.6 C 93 H 18 111/71 06/08/21 23:07 91 H 06/08/21 18:40 101 H 15 98/61 L 06/08/21 18:30 100 H 22 06/08/21 18:26 20 101/60 06/08/21 18:20 107 H 22 06/08/21 18:10 106 H 20 06/08/21 18:00 109 H 41 H Pulse Ox 06/09/21 04:00 94 06/08/21 23:15 97 06/08/21 23:07 06/08/21 18:40 96 06/08/21 18:30 96 06/08/21 18:26 95 06/08/21 18:20 95 06/08/21 18:10 96 06/08/21 18:00 Laboratory Results no leukocytosis. Hb 15.7->12.5 Na, K stable. Cr 1.24->0.82. glucose 173->198. trop .481->.36. repeat pending. bnp pending. venous doppler favors acute DVT of R, nonocclusive. chronic thrombus LLE. head ct neg. cta: upper lobe PE. mild heart strain. 7 mm LLL pulm nodule. echo pending. 06/08 BC pending ecg sinus tach rbbb. inferior and septal leads w/ t wave inversion. no prior comparison Resident Activity Tracking Resident Involvement: Resident Care Provided Care Provided: Adult [facility] Medicine
[2021-06-09 06:40] LABS: Partial Thromboplastin Ratio 1.8
[2021-06-09 06:49] LABS: Partial Thromboplastin Time 46.5 Seconds (21.0-31.0)
--- NOTE | 2021-06-09 07:20 | Ultrasound Report ---
BILATERAL LOWER EXTREMITY VENOUS DOPPLER HISTORY: Pulmonary emboli. Assess for DVT. COMPARISON STUDY: Bilateral lower extremity venous Doppler 04/03/2014. FINDINGS: Focal thrombus seen within the right common femoral vein which is nonocclusive. This is new from the prior study and favors an acute thrombus. Remaining right lower extremity deep venous struc tures are patent. There is echogenic stranding within the left common femoral vein, superficial femor al vein, popliteal veins consistent with nonocclusive thrombus. There is intermittent flow within the calf vessels. This is similar to the prior study and therefore favors chronic nonocclusive thrombus. IMPRESSION: 1. Focal nonocclusive thrombus within the right common femoral vein which is new from the prior study and therefore favors an acute DVT. 2. Nonocclusive thrombus within the left lower extremity venous system as described above which is si milar to the prior study and favors chronic thrombus. ACT 112: Negative or not required by law. Electronically signed by: Alfredo Lawrence M.D. 06/09/2021 7:19 AM
[2021-06-09] MEDS: FLUTICASONE/VILANTEROL 100/25MCG 14 PUFFS/INHALER INH SCH (08:27)
[2021-06-09] MEDS ORDERED: MELATONIN 3 MG TAB PO PRN (16:29)
--- NOTE | 2021-06-09 16:56 | Billing Data ---
Date of Service June 09, 2021 Coding Level of Care Code 47064 Subseq Hosp Care Lvl 3
[2021-06-09] MEDS: APIXABAN 5 MG TABLET PO SCH (17:28)
--- NOTE | 2021-06-09 18:44 | XCELERA ---
[id number]
--- NOTE | 2021-06-09 20:45 | Billing Data ---
Date of Service June 09, 2021 Coding Level of Care Code 21685 Initial Inpt Care Lvl 3
--- NOTE | 2021-06-10 06:48 | Electrocardiogram Report ---
Test Reason : Blood Pressure : / mmHG Vent. Rate : 112 BPM Atrial Rate : 112 BPM P-R Int : 164 ms QRS Dur : 128 ms QT Int : 322 ms P-R-T Axes : 050 090 -13 degrees QTc Int : 439 ms Sinus tachycardia Right bundle branch block T wave abnormality, consider inferior ischemia Abnormal ECG When compared with ECG of 04-APR-2014 08:32, Right bundle branch block is now Present Confirmed by Trace Beckman ([id number]) on 06/10/2021 6:48:27 AM Referred By: REFERRED SELF Confirmed By:Trace Beckman
--- NOTE | 2021-06-10 07:15 | Hospitalist Progress Note ---
Date of Service June 10, 2021 Assessment & Plan (1) Pulmonary embolism: Plan: 85 yo F w/ PMHx of asthma brought to ER for syncope x, found to have BL Pulmonary Emboli with right heart strain and elevated troponin. Stable, improving on anticoagulation PE - as per CTA reading: bilat, no saddle. some mild R sided heart strain - no hx cancer or blood clots - new oxygen requirement of 4L NC, weaned down to 2L - unlikely to be genetic given no hx of blood clots - heparin drip with bolus, since transitioned to PO Eliquis) - source likely from acute DVT in RLE - sPESI 1 point w/ today's vitals. 1 point for age. high risk 8.9% - echo ef 60-65. No rwma. Moderated dilated R ventricle w/ mildly reduced systolic function. Moderate R atrial dilation. Moderate to severe TR. Moderate pulm htn. Estimated RSVP 55 hg. - consider repeat in outpatient in 6 months; unclear if some of the finds from causes other than the acute PE - Considered overall clinical presentation and stable status; no tPA Elevated trop - right heart strain per CTA above - mildly hypotensive on arrival, improved with fluids - secondary to ischemic injury with collapse vs. PE heart strain - trop 0.41, trend - ecg reviewed, T wave inversions, echo ordered as above JJ, resolved after hydration - Cr 1.24at admission, no hx renal disease - gentle fluids - lactate 2.7 down to 1.8 with fluids COPD / asthma - continue home inhalers - added incentive spirometry DVT ppx: on Eliquis FEN/GI: heart healthy Bowel regimen: prn miralax Code Status: DNR/DNI Dispo: med/tele. Ordered PT/OT evals. Patient's Daughter Rosey Castillo would like a phone call update [phone]. She is medical POA. Okay with getting text and calling back later if in a meeting. Patient has a living will. (2) Elevated troponin: (3) Syncope and collapse: (4) Hypoxia: (5) COPD (chronic obstructive pulmonary disease): (6) Osteoporosis: Admission and Anticipated Discharge Date Admission Date: June 08, 2021 Subjective Patient is feeling well. No SOB or KISER. Denies other symptoms. She feels back to baseline. Review of Systems Review of Systems: Constitutional: Denies fever, chills Eyes: Denies blurry vision, vision changes Cardiovascular: Denies chest pain, palpitations Respiratory: Denies shortness of breath Gastrointestinal: Denies abdominal pain, nausea, vomiting, constipation, diarrhea Genitourinary: Denies urinary symptoms including dysuria Musculoskeletal: Denies weakness, muscle aches/pain, joint aches/pain Neurological: Denies headache, numbness, tingling, focal weakness Physical Exam Physical Exam: General: Grossly A&O. NAD. Cooperative. HEENT: Atraumatic, normocephalic. EOMI Pulm: CTAB. -wheezes, -rales, -rhonchi. Slightly decreased air entry on right. Prolonged respiration. No accessory muscle use. Cardiac: RRR, -mrg. 1 to 2+ BLE, worse on R. Slightly improved from 06/10 Abdominal: Nontender, nondistended, soft. Results & Data Results & Data ([facility]) Vital Signs (Past 12 Hours) Vital Signs 2L NC.tachycardia resolved. 80s HR o/n. afeb. bps appropriate Temp Pulse Pulse Resp BP Pulse Ox 06/10/21 05:27 89 06/10/21 03:17 36.7 C 83 18 112/73 94 06/09/21 23:04 36.6 C 82 17 112/72 94 06/09/21 19:27 37.2 C 96 H 18 110/71 93 Laboratory Results cbc stable. plts 172 stable. bmp pending. Resident Activity Tracking Resident Involvement: Resident Care Provided Care Provided: Adult Hospital Medicine
[2021-06-10] MEDS: APIXABAN 5 MG TABLET PO SCH (07:20)
[2021-06-10] MEDS: FLUTICASONE/VILANTEROL 100/25MCG 14 PUFFS/INHALER INH SCH (07:20)
[2021-06-10 09:03] LABS: Basophils # (auto) 0.01 K/uL (0-0.2); Basophils % (auto) 0.2 %; Eosinophils # (auto) 0.15 K/uL (0-0.5); Eosinophils % (auto) 2.7 %; Hematocrit (blood only) 41.4 % (37-47); Hemoglobin 13.5 g/dL (12.0-16.0); Immature Granulocytes # (auto) 0.01 K/uL (0.00-0.02); Immature Granulocytes % (auto) 0.2 %; Lymphocytes # (auto) 0.63 K/uL (1.2-3.4); Lymphocytes % (auto) 11.4 %; Mean Corpuscular Hemoglobin 30.4 pg (25-34); Mean Corpuscular Hgb Conc 32.6 g/dL (32-36); Mean Corpuscular Volume 93.2 fL (80-100); Mean Platelet Volume 10.3 fL (7.4-10.4); Monocytes # (auto) 0.48 K/uL (0.11-0.59); Monocytes % (auto) 8.7 %; Neutrophils # (auto) 4.26 K/uL (1.4-6.5); Neutrophils % (auto) 76.8 %; Platelet Count 172 K/uL (130-400); RDW Coefficient of Variation 15.5 % (11.5-14.5); Red Blood Count 4.44 M/uL (4.2-5.4); White Blood Count 5.54 K/uL (4.8-10.8)
[2021-06-10 09:13] LABS: Partial Thromboplastin Ratio 1.2; Partial Thromboplastin Time 30.3 Seconds (21.0-31.0)
[2021-06-10 09:50] LABS: Albumin Globulin Ratio 0.6 (0.9-2); Albumin Level 2.2 gm/dl (3.4-5.0); BUN Creatinine Ratio 27.2 (10-20); Bilirubin,Total 0.5 mg/dl (0.2-1); Calcium 8.3 mg/dl (8.5-10.1); Creatinine Clr Calc Pharmacy 48.3 ml/min; Est GFR (African American) 97.3 ml/min; Est GFR (Non-African American) 83.9 ml/min; Total Protein 6.2 gm/dl (6.4-8.2)
--- NOTE | 2021-06-10 11:33 | Discharge Summary ---
Date of Service June 10, 2021 Admission HPI Per Admitting Provider 85 yo F with pmh osteoporosis and COPD brought to the emergency department by daughter due to unwitnessed fall and syncope at home. Daughter was trying to get in touch with her mother who was not picking up the phone despite multiple phone calls. Brother was able to come by the house and found her on the ground. Gamal waite states she remembers going to her kitchen and then feeling lightheaded and dizzy, and passing out. She states she was awake and heard the phone ringing but wasn't able to reach the phone. She hasn't had any sick contacts, lives alone and is fairly independent. She denies any previous similar syncopal events. She denies any recent fevers, chills, nausea, vomiting, diarrhea, abdominal pain, chest pain, SOB, dysuria. She denies a history of cancer or previous blood clots and was up to date with her screening colonoscopy in 2018. Admission Exam Per Admitting Provider Constitutional: thin, elderly female in no apparent distress, laying comfortably in bed. Eyes: EOMI, pupils equal and reactive bilaterally, no scleral icterus Cardiac: RRR, no murmurs, gallops or rubs. Normal S1, S2 Pulm: CTA BL, no wheezes, rhonchi, crackles or rubs, moving air well throughout both lungs Abd: soft, nontender, nondistended, normal bowel sounds, no rebound or guarding Extremities: 2+ peripheral pulses, no edema Neuro: no focal deficits, moving all 4 limbs, A&Ox3 Principal Diagnosis pulmonary embolism Discharge Exam General: Grossly A&O. NAD. Cooperative. HEENT: Atraumatic, normocephalic. EOMI Pulm: CTAB. -wheezes, -rales, -rhonchi. Slightly decreased air entry on right. Prolonged respiration. No accessory muscle use. Cardiac: RRR, -mrg. 1 to 2+ BLE, worse on R. Slightly improved from 06/09 Abdominal: Nontender, nondistended, soft. Discharge Data Allergies Allergy/AdvReac Type Severity Reaction Status Date / Time No Known Allergies Allergy Verified 06/08/21 20:59 Consultations 06/08/21 21:00 ED Decision to Admit Stat Ordered Studies Cardiac Enzymes 06/10/21 Range/Units 08:44 AST 29 (15-37) U/L Coagulation 06/10/21 Range/Units 08:44 APTT 30.3 (21.0-31.0) Seconds CBC 06/10/21 Range/Units 08:44 WBC 5.54 (4.8-10.8) K/uL RBC 4.44 (4.2-5.4) M/uL Hgb 13.5 (12.0-16.0) g/dL Hct 41.4 (37-47) % Plt Count 172 (130-400) K/uL Neut # (Auto) 4.26 (1.4-6.5) K/uL Lymph # (Auto) 0.63 L (1.2-3.4) K/uL [place] # (Auto) 0.48 (0.11-0.59) K/uL Eos # (Auto) 0.15 (0-0.5) K/uL Baso # (Auto) 0.01 (0-0.2) K/uL Comprehensive Metabolic Panel 06/10/21 Range/Units 08:44 Sodium 141 (136-145) mmol/L Potassium 4.0 (3.5-5.1) mmol/L Chloride 109 H (98-107) mmol/L Carbon Dioxide 26 (21-32) mmol/L BUN 16 D (7-18) mg/dl Creatinine 0.57 L (0.6-1.2) mg/dl Glucose 126 H (70-99) mg/dl Calcium 8.3 L (8.5-10.1) mg/dl AST 29 (15-37) U/L ALT 42 (12-78) U/L Alkaline Phosphatase 161 H (45-117) U/L Total Protein 6.2 L D (6.4-8.2) gm/dl Albumin 2.2 L (3.4-5.0) gm/dl Intake and Output 06/09/21 06/10/21 06/10/21 22:59 06:59 14:59 Intake Total 1118.433 / 1938.433 Balance 1118.433 / 1938.433 Intake: IV 1118.433 / 1118.433 Heparin Sodium/Dextrose 25,000 118.433 / 118.433 units In 500 ml @ 550 UNITS/HR 11 mls/hr IV .Q24H [facility] Rx#: [id number] Sodium Chloride 0.9% 1000ML 1, 1000 / 1000 000 ml @ 125 mls/hr IV .Q8H [facility] Rx#:[id number] Other: Other Intake Source SIPS # Unmeasured Voids 1 1 Weight 47.3 kg Weight Measurement Method [facility] 06/10/21 08:44 06/10/21 08:44 Chest X-Ray 06/08/21 17:54 XR chest 1V portable CLINICAL HISTORY: hypoxia. COMPARISON STUDY: No previous studies for comparison. TECHNIQUE: 04/03/2014 FINDINGS: Single frontal view of the chest demonstrates the cardiomediastinal silhouette to be within normal limits. There is hyperinflation of the lungs with attenuation of the pulmonary vasculature peripherally characteristic of u nderlying chronic obstructive pulmonary disease. The lungs are clear of alveolar opacities. Mild interstitial fibrotic changes are present at the lung bases. There is no evidence for pleural effusion. There is no evidence for vascular congestion. There is no acute osseous pathology. IMPRESSION: No acute cardiopulmonary disease. Evidence for underlying COPD. ACT 112: Negative or not required by law. Electronically signed by: Walter Hogan M.D. 06/08/2021 6:21 PM Chest CTA 06/08/21 19:26 CT angio chest PE protocol CLINICAL HISTORY: syncope, hypoxia . Shortness of breath. Evaluate for pulmonary embolus. COMPARISON STUDY: Portable chest from 06/08/2021 TECHNIQUE: CT Angio of the chest was performed.followed by image post processing with coronal, and sagittal MIP reformats. Contrast Volume: Optiray 320, 110 ml FINDINGS: Vasculature: There is intraluminal thrombus present within both the right upper and left upper pulmonary arteries with no evidence for saddle embolus. Thrombus is also seen in distal branches of right lower lobe pulmonary arteries. Small thrombi are also seen in the distal left lower lobe pulmonary arteries. Airway: The airway is clear. No endobronchial lesion is identified. Lungs: There is mild centrilobular emphysematous changes particularly involving the upper lobes bilaterally. There is right middle lobe atelectasis. Minimal atelectasis versus scarring is also seen at the lung bases. There is an approximately 7 mm pulmonary nodule seen in the left lung base posterolaterally on left. No other pulmonary nodules or confluent alveolar opacities are seen. Pleura: There is no evidence for pleural effusion. There is no evidence for pneumothorax. Mediastinum: There is no evidence for pathologic adenopathy. There is evidence for mild right heart strain with the ventricular septum in the midline and slightly bulging to the left. The heart size is within normal limits. The thoracic aorta is within normal limits. There is no evidence for pericardial effusion. Upper abdomen:The adrenal glands are normal bilaterally. Osseous structures: There is no acute osseous pathology. Impression: 1. Positive CTA for emboli within predominantly both upper lobes but also within the lower lobes in a more peripheral branches. 2. Evidence for mild heart strain. 3. Right middle lobe atelectasis and minimal bibasilar atelectasis versus scarring. 4. Mild centrilobular emphysema. 5. 7 mm left lower lobe pulmonary nodule. Preliminary results were discussed with the emergency Department. ACT 112: Negative or not required by law. Electronically signed by: Walter Hogan M.D. 06/08/2021 9:[address] 06/08/21 19:46 CT head/brain wo con CLINICAL HISTORY: syncope COMPARISON STUDY: No previous studies for comparison. CT DOSE: 770.44 mGy.cm TECHNIQUE: Standard CT of the Brain was performed without IV contrast. A dose lowering technique was utilized adhering to the principles of ALARA. FINDINGS: Extraaxial space: There is no evidence for subdural hematoma. There are no extra-axial fluid collections. Ventricles and cisterns: The ventricles are normal in size and configuration. There is no evidence for midline shift or mass effect. Parenchyma: There is no subarachnoid or intraparenchymal hemorrhage. There is no evidence for an acute infarct or cerebral edema. There is mild cerebral cortical atrophy and decreased attenuation in the periventricular white matter representing remote small vessel disease. Findings are greater in the left centrum semiovale. There are no gross mass lesions. Osseous structures: There is no evidence for an acute fracture. The visualized paranasal sinuses are clear. The mastoid air cells are clear bilaterally. Soft tissues: There is no evidence for focal soft tissue swelling. IMPRESSION: No acute intracerebral pathology. Remote small vessel disease is present. ACT 112: Negative or not required by law. Electronically signed by: Walter Hogan M.D. 06/08/2021 9:02 PM Venous Doppler Study 06/09/21 00:00 BILATERAL LOWER EXTREMITY VENOUS DOPPLER HISTORY: Pulmonary emboli. Assess for DVT. COMPARISON STUDY: Bilateral lower extremity venous Doppler 04/03/2014. FINDINGS: Focal thrombus seen within the right common femoral vein which is n onocclusive. This is new from the prior study and favors an acute thrombus. Remaining right lower extremity deep venous structures are patent. There is echogenic stranding within the left common femoral vein, superficial femoral vein, popliteal veins consistent with nonocclusive thrombus. There is i ntermittent flow within the calf vessels. This is similar to the prior study and therefore favors chronic nonocclusive thrombus. IMPRESSION: 1. Focal nonocclusive thrombus within the right common femoral vein which is new from the prior study and therefore favors an acute DVT. 2. Nonocclusive thrombus within the left lower extremity venous system as described above which is similar to the prior study and favors chronic thrombus. ACT 112: Negative or not required by law. Electronically signed by: Alfredo Lawrence M.D. 06/09/2021 7:19 AM 06/08/21 ecg Vent. Rate : 112 BPM Atrial Rate : 112 BPM P-R Int : 164 ms QRS Dur : 128 ms QT Int : 322 ms P-R-T Axes : 050 090 -13 degrees QTc Int : 439 ms Sinus tachycardia Right bundle branch block T wave abnormality, consider inferior ischemia Abnormal ECG When compared with ECG of 04-APR-2014 08:32, Right bundle branch block is now Present Confirmed by Trace Beckman ([id number]) on 06/10/2021 6:48:27 AM Hospital Course (1) Pulmonary embolism: 85 yo F w/ PMHx of asthma brought to ER for syncope x1, found to have BL P ulmonary Emboli with right heart strain and elevated troponin. Stable, improving on anticoagulation PE - as per CTA reading: bilat, no saddle. some mild R sided heart strain - no hx cancer or blood clots - new oxygen requirement of 4L NC, weaned down to 2L, will be discharged home on 2L continuous O2 per 2 step test. - unlikely to be genetic given no hx of blood clots - heparin drip with bolus, since transitioned to PO Eliquis ~ 1 week of Eliquis at 10mg twice a day (loading dose), with the last dose of this dose the evening of 06/12/21. 06/16/21 morning and thereafter, take 5mg twice a day. - source likely from acute DVT in RLE - sPESI 1 point w/ today's vitals. 1 point for age. high risk 8.9% - echo ef 60-65. No rwma. Moderated dilated R ventricle w/ mildly reduced systolic function. Moderate R atrial dilation. Moderate to severe TR. Moderate pulm htn. Estimated RSVP 55 hg. - consider repeat in outpatient in 6 months; unclear if some of the findings from causes other than the acute PE - Considered overall clinical presentation and stable status; no tPA Elevated trop - right heart strain per CTA above - mildly hypotensive on arrival, improved with fluids - secondary to ischemic injury with collapse vs. PE heart strain - trop 0.481, peaked, likely 2/2 increased demand - ecg reviewed, multiple T wave inversions. Consider outpatient cardiac workup; ecg and potential stress test. JJ, resolved after hydration - Cr 1.24 at admission -> 0.57, no hx renal disease - lactate 2.7 down to 1.8 with fluids asthma - continue home inhalers - added incentive spirometry - listed diagnosis of COPD in question as review of outpatient notes, has had asthma x years and is never smoker. (2) Elevated troponin: (3) Syncope and collapse: (4) Hypoxia: (5) COPD (chronic obstructive pulmonary disease): (6) Osteoporosis: Total Time Total Time Spent Total Time Spent (In Minutes): <30 Discharge Plan Discharge Items Patient Disposition: Home - Self-Care Reason For Visit: HYPOXIA, PE Discharge Diagnosis: pulmonary embolism Activity: Per Instructions section Non-emergency contact: Primary Care Provider Call non-emergency contact if: you have any medication questions and your symptoms worsen Follow-up/Referrals: Imelda Yates DO [Primary Care Provider] - 06/17/21 10:30 am () Diet: Regular Addtl Attending Provider Instructions: Daron Ms. Bravo, You were admitted to [facility] for pulmonary embolism, blood clots in your lungs. This was treated with a blood thinner. The IV blood thinner was switched to an oral blood thinner called Eliquis which you will continue to take upon leaving the hospital. New oxygen requirement: You will be using 2 liters of oxygen at home continuously. This is likely from your pulmonary embolism blood clots. Your PCP will assess at a later time to see if/when you can get off the oxygen. Eliquis. Take a dose (10mg) evening of 06/10/21 (day of hospital discharge). You will be taking ~ 1 week of this medication at 10mg twice a day (loading dose), with the last dose of this dose the evening of 06/12/21. 06/16/21 morning and thereafter, take 5mg twice a day. Please obtain refills from your PCP. There were some abnormalities on your heart ultrasound that may be in part from the pulmonary embolism. Your PCP will follow up on this with a repeat ultrasound in several months. Separately, there were some changes on the ecg that your PCP may wish to follow up on nonemergently. I will be sending your PCP a summary of the hospital visit. If you develop any new or worsening symptoms including fever, chills, sweats, chest pain, chest pressure, difficulty breathing, uncontrolled nausea/vomiting, rash, wheezing, passing out or nearly passing out, bleeding, black/bloody bowel movements, or other new or concerning symptoms please call your primary care physician, or call 911 for re-evaluation in the emergency department if you are very concerned. You can call your PCP's office at any time as there is a triage staff member ship's electronic warfare officer. Pending Studies at Discharge: No Stand-Alone Forms: [facility] [place] Events, Smoking Cessation Medications and DC Order Prescriptions: New Eliquis 5 mg tablet See Rx Instructions .ROUTE .COMPLEX Qty: 60 RF: 0 Continued albuterol sulfate 90 mcg/actuation HFA aerosol inhaler 2 puff INHALATION Q6H PRN (Reason: Shortness Of Breath Or Wheezing) RF: 0 alendronate 70 mg tablet 70 mg PO WK RF: 0 Breo Ellipta 100-25 mcg/dose blister with device 1 inh INHALATION DAILY RF: 0 multivitamin Tablet 1 tab PO DAILY RF: 0 Discharge Orders: Discharge Order (Routine); Ordered 06/10/21 Ordered By: Tramaine Henson Admission Data Admit Date/Time: 06/08/21 22:02 Attending Provider: Jama Carlson Admit Provider: Neeta Parker Primary Care Provider: Imelda Yates Other Providers: Jono Herbert Other Interventions: Discharge Summary Assessment (RN) Last Done: 06/10/21 14:31 Supervising Physician Co-Signing Physician Notes I personally examined the patient and verified all diehl points of history and exam, discussed case, and agree with decision making with Dr Henson. Feeling better. Still needs oxygen, but able to be set up for home. Is okay with going home on oxygen. Daughter present at the bedside, updated/answered all questions to the best my ability. Daughter overall very anxious. Vitals noted, in general she is awake and alert pleasant no distress. HEENT normocephalic atraumatic mucous membranes moist. Breathing unlabored no accessory muscle use good effort. Skin shows no rashes no pallor or icterus. Neuro without focal deficits. Did well with physical therapy while I was in the room talking with patient and daughter PE due to acute right femoral DVThome on apixaban, still needs supplemental oxygen but safe for home. Can hopefully slowly wean over time as an outpatient Right heart strainnot surprising given PEs, COPD, age. Echo really entirely that of right heart strain/pulmonary hypertensionuncertain how much is acute versus chronic, repeat echo in a few months. EKG changesentire acute scenario fit with PEs and right heart strain. Outpatient follow-up Otherwise as above. Stable for home Resident Activity Tracking Resident Involvement: Resident Care Provided Care Provided: Adult Hospital Medicine
[2021-06-10 11:35] VITALS: BP 103/60; TEMP 98.2
[2021-06-10 14:19] VITALS: O2SAT 94
[2021-06-10 14:33] VITALS: PULSE 87
--- NOTE | 2021-06-10 17:03 | Billing Data ---
Date of Service June 10, 2021 Coding Level of Care Code D/C DAY MANAGEMENT <30 MINS
== END 2021-06-10 15:25 | disposition home or self-care (01) | DRG 176 ==
LOC: ED 17:20 → SUATTDRO 22:02 → 2N 22:02